=== PATIENT | female | born 2000 | race Caucasian/White ===

== ENCOUNTER → 2023-07-27 08:49 | Outpatient (CLI) | payer BC, SELFPAY ==
--- NOTE | ~2023-07-27 | US_ITS ---
Pelvic ultrasound. Clinical History: Pressure a , establish dates and viability. Technique: Realtime transabdominal and transvaginal scanning of the pelvis was performed. Color flow Doppler and Doppler spectral analysis were performed. Findings: The uterus is anteverted, and contains an intrauterine gestational sac. [place]-rump length o f 1.6 cm corresponds to an estimated gestational age of 8 weeks 0 days. heart rate is 169 bpm. Probable small subchorionic hemorrhage present. The right ovary measures 2.5 x 1.9 x 2.1 cm. No significant right ovarian or adnexal mass is seen. The left ovary measures 2.4 x 3.3 x 2.4 cm. No significant left ovarian or adnexal mass is seen. There is no evidence of free fluid in the cul de sac. Impression: Live intrauterine gestation, with estimated gestational age of 8 weeks 0 days. heart rate is 16 9 bpm. Gestational sac is somewhat distally located, but there appears to be intact myometrium about the gestational sac. Probable small subchorionic hemorrhage. Reviewed, dictated and finalized at [facility]. S PROJECT MANAGER Impression: Live intrauterine gestation, with estimated gestational age of 8 weeks 0 days. heart rate is 169 bpm. Gestational sac is somewhat distally located, but there appears to be intact myometrium about the gestational sac. Probable small subchorionic hemorrhage.
== END ==
PROVIDERS: PCP Family Medicine; Visit Provider Advanced Practice Midwife
DX: O36.80X0 Pregnancy with inconclusive fetal viability, not applicable or unspecified (principal); Z3A.00 Weeks of gestation of pregnancy not specified
CPT/HCPCS: 76801; 76817

== ENCOUNTER → 2023-08-10 07:49 | Outpatient (CLI) | payer BC, SELFPAY ==
--- NOTE | ~2023-08-10 | US_ITS ---
EXAMINATION: US OB <=14 wk fetus w TV DATE: 08/10/2023 08:20 INDICATION: Subchorionic hematoma during first trimester TECHNIQUE: Real-time pelvic ultrasound utilizing both a transvaginal and transabdominal probe was pe rformed. The interpreting radiologist was not present for the study. COMPARISON: 07/27/2023 FINDINGS: The uterus measures 10.9 x 7.3 x 6.9 cm. There is an intrauterine gestational sac. A yolk sac and fe juan pablo pole are identified. The crown rump length measures 3.0, which correlates with an estimated gesta tional age of 10 weeks and 0 days. heart motion is identified measuring 165 beats per minute (b pm) by M-mode Doppler. No significant change in size of a 2.3 x 1.6 x 1.5 cm subchorionic hematoma. The right ovary is not visualized The left ovary measures 2.2 x 2.1 x 2.1 cm. 1.4 similar anechoic li lima corpus luteum cyst in the left ovary. There is no free fluid in the pelvis. IMPRESSION: 1. Single living fetus with heart rate of 165 bpm. 2. Persistent small subchorionic hematoma. 3. Gestational age by ultrasound of 10 weeks 0 day(s) +/- 6 day(s) with ultrasound estimated date of delivery (ARTIS) of 03/07/2024. Reviewed, dictated and finalized at location A. TUBE MAKER IMPRESSION: 1. Single living fetus with heart rate of 165 bpm. 2. Persistent small subchorionic hematoma. 3. Gestational age by ultrasound of 10 weeks 0 day(s) +/- 6 day(s) with ultraso und estimated date of delivery (ARTIS) of 03/07/2024.
== END ==
PROVIDERS: PCP Obstetrics & Gynecology Gynecology; Visit Provider Obstetrics & Gynecology Gynecology
DX: O36.8910 Maternal care for other specified fetal problems, first trimester, not applicable or unspecified (principal); Z3A.10 10 weeks gestation of pregnancy
CPT/HCPCS: 76801; 76817

== ENCOUNTER → 2023-09-04 08:47 | Outpatient (CLI) | payer BC, SELFPAY ==
--- NOTE | ~2023-09-04 | US_ITS ---
EXAMINATION: US OB <= 14 weeks fetus DATE: 09/04/2023 09:44 INDICATION: Subchorionic hematoma follow-up during first trimester TECHNIQUE: Real-time pelvic transabdominal and transvaginal ultrasound was performed. COMPARISON: None. FINDINGS: The uterus measures 15.1 x 8.3 x 7.8 cm. There is an intrauterine gestational sac. The plac enta is anterior. No persistent subchorionic hematoma is identified. heart motion is identified measuring 161 beats per minute (bpm) by M-mode Doppler. The crown rump length measures 7.7 cm, which correlates with an estimated gestational age of 13 weeks and 6 day(s) (+/-) 9 day(s). The ovaries are not visualized however no adnexal abnormality is seen. There is no free fluid in the pelvis. IMPRESSION: 1. Live intrauterine with an estimated gestational age of 13 weeks and 6 day(s) (+/-) 9 day (s) and an estimated delivery date of 03/05/2024. 2. No persistent subchorionic hematoma identified. Reviewed, dictated and finalized at location F. ELAIN SLUSHER IMPRESSION: 1. Live intrauterine with an estimated gestational age of 13 weeks an d 6 day(s) (+/-) 9 day(s) and an estimated delivery date of 03/05/2024. 2. No persistent subchorionic hematoma identified.
== END ==
PROVIDERS: PCP Family Medicine; Visit Provider Advanced Practice Midwife
DX: O36.8910 Maternal care for other specified fetal problems, first trimester, not applicable or unspecified (principal); Z3A.13 13 weeks gestation of pregnancy
CPT/HCPCS: 76801

== ENCOUNTER 2023-10-16 11:22 | Outpatient (CLI) | payer BC, SELFPAY ==
--- NOTE | ~2023-10-16 | US_ITS ---
US OB /maternal detail DATE: 10/16/2023 12:19 INDICATION: anatomy screen TECHNIQUE: Real-time imaging and Doppler analysis COMPARISON: 09/04/2023 obstetrical ultrasound examination FINDINGS: Live chau intrauterine gestation, fetus in longitudinal lie, vertex presentation. Anterior placenta, lower margin well above the internal os. heart rate of 143 bpm. The cerebral ventricles, cisterna magna, cerebellum and cervical spine appear normal. Normal nu chal fold. diaphragm appears intact. Four-chamber heart view is not optimally demonstrated nor any outflow tracts, due to body habit us. Consider follow-up imaging for this. heart rate 143 bpm. Fluid is demonstrated in the stomach and urinary bladder. The kidneys are unremarkable, without hydronephrosis. Four extremities are detected. Biparietal diameter 4.34 cm; 19 weeks 1 day Head circumference 17.13 cm; 19 weeks 5 days Abdominal circumference 14.97 cm; 20 weeks 2 days Femur length 3.16 cm; 19 weeks 6 days Composite age by [place] formula is 19 weeks 5 days +/- 1 week 3 days with ARTIS of 03/06/2024, very monserrat se to the 03/05/2024 ARTIS obtained by the 09/04/2023 obstetrical ultrasound examination and the ARTIS of 03/07/2024 from the 07/27/2023 obstetrical ultrasound examination. IMPRESSION: Normal growth Four-chamber heart and outflow tracts are not optimally demonstrated due to body habitus; consi khushi follow-up imaging Otherwise normal anatomy screen Reviewed, dictated and finalized at Location [facility]. Reviewed, dictated and finalized at location A. IMPRESSION: Normal growth Four-chamber heart and outflow tracts are not optimally demonstrated due to body habitus; consider follow-up imaging Otherwise normal anatomy screen
== END 2023-10-16 11:23 ==
LOC: GOSHIMG 11:23
PROVIDERS: PCP Family Medicine; Visit Provider Advanced Practice Midwife
DX: Z36.9 Encounter for antenatal screening, unspecified (principal)
CPT/HCPCS: 76805

== ENCOUNTER 2023-10-23 08:40 | Outpatient (CLI) | payer BC, SELFPAY ==
--- NOTE | ~2023-10-23 | US_ITS ---
US renal BI 10/23/2023 09:00 Procedure: Realtime transabdominal ultrasound of the kidneys and bladder. Indication: Proteinuria Comparison: No prior studies for comparison. Findings: Renal echotexture is normal bilaterally without hydronephrosis, contour deforming mass or r enal calculus. The right kidney measures 11.7 cm and left kidney measures 10.9 cm. Bladder within no rmal limits. Impression: 1: Unremarkable renal ultrasound. No stones, masses or hydronephrosis. Reviewed, dictated and finalized at location B. Impression: 1: Unremarkable renal ultrasound. No stones, masses or hydronephrosis.
== END 2023-10-23 08:41 ==
PROVIDERS: PCP Family Medicine
DX: R80.0 Isolated proteinuria (principal)
CPT/HCPCS: 76775

== ENCOUNTER 2024-02-03 14:14 | Outpatient (RCR) | payer BC, SELFPAY ==
[2024-02-02] MEDS: BETAMETHASONE SOD PHOS/ACETATE 30 MG/5 ML VIAL 12 MG IM (14:09)
[2024-02-03] MEDS: BETAMETHASONE SOD PHOS/ACETATE 30 MG/5 ML VIAL 12 MG IM (14:41)
== END 2024-05-02 23:59 | disposition home or self-care (01) ==
LOC: ANHOBOP 14:14
PROVIDERS: PCP Family Medicine; Visit Provider Obstetrics & Gynecology Gynecology
DX: O36.8990 Maternal care for other specified fetal problems, unspecified trimester, not applicable or unspecified (principal); Z3A.00 Weeks of gestation of pregnancy not specified
CPT/HCPCS: 96372; J0702

== ENCOUNTER 2024-02-03 16:39 | Inpatient (IN) | payer BC, SELFPAY ==
[2024-02-03] VITALS (10 sets, daily range): BP systolic 96–144; BP diastolic 47–82; PULSE 78–102; BMI 51.7
[2024-02-03] MEDS: miSOPROStol 25 MCG TABLET BUCCAL (18:50)
[2024-02-03 18:51] LABS: Basophils Percent Auto 0.1 % (0.2-1.2); Hematocrit 37.8 % (37.0-47.0); Hemoglobin 13.1 g/dL (12.0-15.0); Immature Granulocyte Absolute 0.09 K/mm3 (0.00-0.031); Immature Granulocyte Percent A 0.7 % (0-0.5); Lymphocytes Absolute Auto 1.31 K/mm3 (0.9-3.2); Lymphocytes Percent Auto 9.5 % (18.3-44.2); Mean Corpuscular HGB Conc 34.7 g/dl (32-36); Mean Corpuscular Hemoglobin 30.5 pg (26-34); Mean Corpuscular Volume 88.1 fl (80-100); Mean Platelet Volume 9.3 fl (7.4-10.4); Monocytes Absolute Auto 0.5 K/mm3 (0.1-0.6); Monocytes Percent Auto 3.3 % (2.6-8.5); Neutrophils Absolute Auto 11.9 K/mm3 (1.3-6.7); Neutrophils Percent Auto 86.4 % (45.5-73.1); Platelet Count Result 306 k/mm3 (150-375); Red Blood Count 4.29 M/mm3 (4.2-5.4); Red Cell Distribution Width 13.1 % (11.5-14.5); White Blood Count 13.8 K/mm3 (4.5-10.0)
--- NOTE | 2024-02-03 18:53 | LDADM ---
This patient, Inderjit Pinto, was admitted to Labor/Delivery/Recovery 103 on 02/03/24 at 16:39. Plans for labor, pain management and were discussed with patient. Patient/family oriented to hospital policies and general routines including ID bracelet, bed and alarms, visiting hours, pain management, procedures, bathroom and other care routines, personal items, smoking policy, room service/diet and guest tray routines, security routines, and visiting hours. Patient/Family are encouraged to report perceived risks to care and to ask questions if they do not understand what they are told or what they should do. See OBIX for further documentation.
[2024-02-03 19:09] LABS: Alanine Aminotransferase 50 U/L (6-35); Albumin Level 3.3 g/dL (3.5-5.1); Alkaline Phosphatase 119 U/L (38-126); Anion Gap 8 mmol/L (4-12); Aspartate Amino Transferase 32 U/L (14-36); Bilirubin,Total 0.3 mg/dL (0.2-1.3); Blood Urea Nitrogen 17 mg/dL (7-17); Carbon Dioxide 21 mmol/L (22-30); Chloride 104 mmol/L (98-107); Estimated CRCL calculation 162 ml/min; Estimated Glomerular Filt Rate > 60; Glucose 151 mg/dL (65-110); Potassium 3.9 mmol/L (3.4-5.0); Sodium 133 mmol/L (137-145)
[2024-02-03 19:11] LABS: Uric Acid 6.1 mg/dL (2.5-7.5)
[2024-02-03 19:19] LABS: Glucose Point of Care 124 mg/dl (65-105)
[2024-02-03 19:27] LABS: Rapid Plasma Reagin Non-Reactive (NonReactive)
[2024-02-03 19:50] LABS: HIV 1/2 Ab P24 Ag Result Negative (Negative)
[2024-02-03] MEDS: INSULIN HUMAN NPH (*BKC) 100 UNITS/ML 51 UNITS SUB-Q (21:28)
[2024-02-03] MEDS: miSOPROStol 25 MCG TABLET 50 MCG VAGINAL (22:58)
[2024-02-03 23:42] LABS: Glucose Point of Care 171 mg/dl (65-105)
[2024-02-04] VITALS (242 sets, daily range): BP systolic 66–142; BP diastolic 37–87; PULSE 27–140; RESP 18–20; TEMP 36.4–37.3; O2SAT 84–100
[2024-02-04] MEDS: miSOPROStol 25 MCG TABLET 50 MCG VAGINAL (02:50)
[2024-02-04 07:06] LABS: Glucose Point of Care 96 mg/dl (65-105)
[2024-02-04] MEDS: LACTATED RINGERS 1,000 ML 125 ML IV CONT ×2 (07:08→14:22)
[2024-02-04] MEDS: OXYTOCIN 30 UNITS/NS 500 ML 30 UNITS/500 ML BAG 6 UNITS IV CONT (07:14)
--- NOTE | 2024-02-04 07:29 | WPDOBADMIT ---
Obstetrics - Admit Note Admission Note: record reviewed. Pertinent additions to the history and/or any subsequent changes in the physical findings that are not consistent with the expected course of the were found. Additions to the history and/or subsequent changes in the physical findings follow. Patient with nephrotic syndrome diagnosed at start of pregnacy, GDMA2, and likely now preeclampsia. S/p steroids on 02/01 and 02/02. Here for MIL. Received cytotec overnight and now on pitocin. Cervix now /-2. AROM with clear fluid. IUPC placed. VSS and labs stable.
--- NOTE | 2024-02-04 08:49 | WPDANESEPP ---
Anes - Eval Pre Procedure Procedure: Labor Epidural Date/Time: 02/04/24 08:49 Surgeon: Lino Preop Diagnosis: Labor pain Pre Op Diagnosis: IOL Patient Data Age: 23 Gender: F Height: 1.7 m Weight: 150 kg Last Vital Signs Temp 36.9 C 02/04/24 07:01 Pulse 83 02/04/24 08:31 Resp 18 02/04/24 07:01 BP 139/82 02/04/24 08:31 O2 Del Method Room Air 02/03/24 18:53 Allergies Allergy/AdvReac Type Severity Reaction Status Date / Time nitrofurantoin Allergy Swelling Verified 02/03/24 18:59 [From Macrobid] of Lip/Tongue/Throat Home Medications Medication Instructions Recorded Confirmed Type aspirin 81 mg tablet 81 mg PO DAILY 02/03/24 02/03/24 History ergocalciferol (vitamin D2) 1,250 50,000 unit PO WEEKLY 02/03/24 02/03/24 History mcg (50,000 unit) capsule (Vitamin D2) insulin NPH isoph U-100 human 100 51 unit subcut HS 02/03/24 02/03/24 History unit/mL (3 mL) subcutaneous pen (Humulin N NPH U-100 Insulin KwikPen) vits no.126-ferrous fum 1 tablet PO DAILY 02/03/24 02/03/24 History 28 mg iron-folic acid 800 mcg tablet (Classic ) Laboratory Tests 02/03/24 02/03/24 02/03/24 18:29 19:16 23:37 WBC 13.8 H K/mm3 (4.5-10.0) RBC 4.29 M/mm3 (4.2-5.4) Hgb 13.1 g/dL (12.0-15.0) Hct 37.8 % (37.0-47.0) MCV 88.1 fl (80-100) MCH 30.5 pg (26-34) MCHC 34.7 g/dl (32-36) RDW 13.1 % (11.5-14.5) Plt Count 306 k/mm3 (150-375) MPV 9.3 fl (7.4-10.4) Immature Gran % (Auto) 0.7 H % (0-0.5) Neut % (Auto) 86.4 H % (45.5-73.1) Lymph % (Auto) 9.5 L % (18.3-44.2) [place] % (Auto) 3.3 % (2.6-8.5) Eos % (Auto) 0.0 % (0-4.4) Baso % (Auto) 0.1 L % (0.2-1.2) Lymph # (Auto) 1.31 K/mm3 (0.9-3.2) [place] # (Auto) 0.5 K/mm3 (0.1-0.6) Eos # (Auto) 0.0 K/mm3 (0-0.3) Baso # (Auto) 0.0 K/mm3 (0.0-0.1) Abs Immat Gran (auto) 0.09 H K/mm3 (0.00-0.031) Absolute Neuts (auto) 11.9 H K/mm3 (1.3-6.7) Absolute Nucleated RBC 0.000 K/mm3 (0.0-0.012) Nucleated RBC % 0.0 % (0.0-0.2) Sodium 133 L mmol/L (137-145) Potassium 3.9 mmol/L (3.4-5.0) Chloride 104 mmol/L (98-107) Carbon Dioxide 21 L mmol/L (22-30) Anion Gap 8 mmol/L (4-12) BUN 17 mg/dL (7-17) Creatinine 0.70 mg/dL (0.7-1.0) Estim Creat Clear Calc 162 ml/min Estimated GFR > 60 (59 - ) Glucose 151 H mg/dL (65-110) POC Capillary Glucose 124 H mg/dl 171 H mg/dl (65-105) (65-105) Uric Acid 6.1 mg/dL (2.5-7.5) Calcium 9.0 mg/dL (8.4-10.2) Total Bilirubin 0.3 mg/dL (0.2-1.3) AST 32 U/L (14-36) ALT 50 H U/L (6-35) Alkaline Phosphatase 119 U/L (38-126) Total Protein 6.0 L g/dL (6.3-8.2) Albumin 3.3 L g/dL (3.5-5.1) RPR Non-reactive (NonReactive) HIV 1&2 Ab/P24 Ag 4thGn Negative (Negative) Blood Type A Positive Antibody Screen Negative 02/04/24 06:58 WBC RBC Hgb Hct MCV MCH MCHC RDW Plt Count MPV Immature Gran % (Auto) Neut % (Auto) Lymph % (Auto) [place] % (Auto) Eos % (Auto) Baso % (Auto) Lymph # (Auto) [place] # (Auto) Eos # (Auto) Baso # (Auto) Abs Immat Gran (auto) Absolute Neuts (auto) Absolute Nucleated RBC Nucleated RBC % Sodium Potassium Chloride Carbon Dioxide Anion Gap BUN Creatinine Estim Creat Clear Calc Estimated GFR Glucose POC Capillary Glucose 96 mg/dl
[2024-02-04] MEDS: LACTATED RINGERS 1,000 ML 999 ML IV CONT (09:14)
[2024-02-04 09:41] LABS: Glucose Point of Care 112 mg/dl (65-105)
[2024-02-04 11:57] LABS: Glucose Point of Care 84 mg/dl (65-105)
[2024-02-04 14:49] LABS: Glucose Point of Care 85 mg/dl (65-105)
[2024-02-04 16:16] LABS: Glucose Point of Care 101 mg/dl (65-105)
[2024-02-04 18:25] LABS: Glucose Point of Care 80 mg/dl (65-105)
--- NOTE | 2024-02-04 20:28 | PM.OBPRVD ---
OB - Vaginal Delivery Note Procedure Delivery date: 02/04/24 Events: Gestational Diabetes (GDMA2), Preeclampsia w/o severe features and Other (Nephrotic syndrome) Induction method: AROM, Per Misoprostol Protocol and Per Pitocin Protocol Delivery monitor: Internal FHT and Internal Uterine Route of delivery: Laceration Description: Perineal - 2nd Degree Delivery repair: vicryl (3-0) Specimen: Yes (placenta) Quantitative Blood Loss (ml): 150 Anesthesia type: Epidural Disposition: Floor Complications: No immediate complications [place] Baby Date of : 02/04/24 Gestational Age by Date: 35 (35 5/) Infant gender: Male Weight (pounds): 6 Weight (ounces): 10 presentation: vertex position: Right Occiput Anterior Placenta delivery description: Spontaneous Cord Vessel Description: 3 Vessels, Nuchal Cord and Delayed Cord Clamping score one minute: 8 score five minutes: 9
--- NOTE | 2024-02-04 20:30 | PM.OBDSVD ---
DS: Admitting Diagnosis Discharge Date 02/06/24 Admitting Diagnosis IUP 35 4/7 wks Nephrotic syndrome Preeclampsia GDMA2 DS: Discharge Diagnosis Discharge Diagnosis (1) (normal spontaneous vaginal delivery): Code(s): O80 - Encounter for full-term uncomplicated delivery Status: Acute (2) Preeclampsia: Code(s): O14.90 - Unspecified pre-eclampsia, unspecified trimester Status: Acute (3) Nephrotic syndrome: Code(s): N04.9 - Nephrotic syndrome with unspecified morphologic changes Status: Acute (4) GDM, class A2: Code(s): O24.419 - Gestational diabetes mellitus in , unspecified control Status: Acute (5) with 35 to 36 completed weeks gestation: Status: Acute Assessment and Plan: Delivered OB - DS: Summary OB Procedures : NST, PIH Mgmt, Ultrasound and Other (Diabetes management) OB Procedures Intrapartum: Spontaneous Vag Delivery OB Procedures: : None Peripartum Data Infant Delivery Method: Natural Vaginal Laceration Description: Perineal - 2nd Degree Episiotomy description: None complications: none Status at Discharge Functional status at discharge: independent ambulation Overall status at discharge: patient is progressing back to baseline Time Spent with Patient Time attestation: Total time spent providing and/or coordinating discharge services: DS: Data Data Completed and Pending Labs on day of discharge: Labs from last 24 hours 02/04/24 02/04/24 02/04/24 18:19 16:02 14:05 POC Capillary Glucose 80 101 85 02/04/24 02/04/24 02/04/24 11:54 09:36 06:58 POC Capillary Glucose 84 112 H 96 02/03/24 23:37 POC Capillary Glucose 171 H Discharge Plan Discharge Attending physician on discharge: Arline Huynh Discharging Clinician: Arline Huynh Anticipated Discharge Date/Time: 02/06/24 20:32 Patient Disposition: Home, Self-Care Activity: may shower and pelvic rest Diet: regular Discharge Instructions: Education: Mom and Baby Guide Given to: Mother Follow-Up: Call your delivering provider's office for an appointment to be seen in: 1 week and 6 weeks Mom and baby should come to the [facility] for the follow-up appointment. Appointment Date/Time: February 08, 2024 at 9:00 am What to expect at your follow-up visit: Physical Assessment Call [phone] if you are unable to keep your appointment time. BREAST CARE: * Wear a snug supportive bra. * For engorgement discomfort: Breast Feeding: * Apply warm moist washcloths * Express milk as needed to relieve engorgement * Wear loose clothing Bottle Feeding: * May apply ice packs * For sore nipples: * Identify correct latch-on * Apply warm moist washcloths before and after nursing * Air dry nipples after nursing * May apply [place] cream to nipples EPISIOTOMY/PERINEAL CARE: * Until bleeding stops, use your mary bottle after urinating * Change your pad frequently throughout the day * You may take sitz baths several times a day (fill your bathtub with warm water and soak for 20 minutes.) Do NOT bathe in the water * No tub baths until seen by your physician - You may shower ACTIVITY: * Rest as much as possible. * Do not exercise or lift anything heavier than your baby (such as laundry or other children.) * Avoid stairs or driving as much as possible. * Do not put anything into the vagina. No douching, tampons, or sexual activity until seen by physician. NOTIFY PHYSICIAN IF YOU HAVE ANY QUESTIONS OR IF ANY OF THE FOLLOWING SYMPTOMS OCCUR: * If your episiotomy or incision becomes red, swollen, or more painful than what you have experienced in the hospital. * If your vaginal bleeding becomes foul smelling. * If your vaginal bleeding becomes more heavy than a period or if your bleeding arredondo
[2024-02-04] MEDS: OXYTOCIN 30 UNITS/NS 500 ML 30 UNITS/500 ML BAG 125 UNITS IV CONT (20:47)
[2024-02-04] MEDS: ACETAMINOPHEN 500 MG TABLET (20:49)
[2024-02-04] MEDS: ACETAMINOPHEN 500 MG TABLET 1000 MG PO (21:58)
[2024-02-04] MEDS: ENOXAPARIN 40 MG/0.4 ML SYRINGE SUB-Q (22:31)
[2024-02-05] VITALS (7 sets, daily range): BP systolic 123–142; BP diastolic 72–97; PULSE 79–104; RESP 16–18; TEMP 36.4–38.1; O2SAT 96–98; BMI 50.9
--- NOTE | 2024-02-05 00:07 | PC.NURSE ---
0000- this RN called MD to update her on pts perineal repair pain unrelieved by tylenol. Orders received.
[2024-02-05] MEDS: HYDROcodone/acetaminophen (*CRX) 10-325 MG TABLET 1 TAB PO (00:19)
--- NOTE | 2024-02-05 00:30 | OBPPTRN ---
Patient transferred to post room #284 via wheelchair. Support person/spouse present. Oriented to unit, room, information board, rooming in, admission packet and security measures. Patient verbalizes understanding.
--- NOTE | 2024-02-05 01:30 | PC.NURSE ---
Initiated pumping with patient due to separation from . Educated on cleaning pump parts and milk storage.
--- NOTE | 2024-02-05 03:30 | PC.NURSE ---
transported PT via wheelchair to RM 101 to visit with in level 2 nursery.
[2024-02-05 06:57] LABS: Hemoglobin 12.6 g/dL (12.0-15.0)
[2024-02-05] MEDS: DOCUSATE SODIUM 100 MG CAPSULE PO (07:56)
[2024-02-05] MEDS: MULTIVIT/MIN/PREN/FOL AC/IRON TABLET 1 TAB PO (07:57)
[2024-02-05] MEDS: ACETAMINOPHEN 500 MG TABLET 1000 MG PO ×3 (07:57→19:50)
--- NOTE | 2024-02-05 08:01 | PM.OBPNVD ---
OB - PN: Subj Subjective Date/time seen: 02/05/24 08:01 Patient comments: no complaints and pain well controlled baby status: doing well OB - PN: Obj Data Labs 02/05/24 04:48 02/03/24 18:29 Labs: Laboratory Results - last 24 hr 02/04/24 02/04/24 02/04/24 09:36 11:54 14:05 Hgb Hct POC Capillary Glucose 112 H 84 85 02/04/24 02/04/24 02/05/24 16:02 18:19 04:48 Hgb 12.6 Hct 37.0 POC Capillary Glucose 101 80 OB - PN A/P Assessment and Plan (1) Preeclampsia: Code(s): O14.90 - Unspecified pre-eclampsia, unspecified trimester Status: Acute Assessment and Plan: BP stable, good diuresis (2) Nephrotic syndrome: Code(s): N04.9 - Nephrotic syndrome with unspecified morphologic changes Status: Acute Plan day: 1 Plan: routine care Time Spent With Patient Time: Total time spent is greater than 50% in coordination of care (as documented) at patient's floor/unit and/or counseling patient: Exam : Bimanual exam- vagina & uterus: other (Uterus firm, nt @U)
--- NOTE | 2024-02-05 10:26 | PC.NURSE ---
Patient encouraged to record the pumping schedule on the feeding sheet.?Mother voiced understanding of the education shared along with mom/baby guide and the pump measurement, flange fit handout for additional resource information.
--- NOTE | 2024-02-05 11:23 | WPDANLDPN2 ---
Anes-Prog Note L&D Date/Time: 02/05/24 11:23 Neuro status: Neuro function grossly intact. Cardiovascular status: normal Respiratory status: normal Airway patency: baseline Mental status: baseline Post-Op hydration status: normal Vital Signs: Last Vital Signs Temp 38.1 C H 02/05/24 07:30 Pulse 104 H 02/05/24 08:00 Resp 16 02/05/24 08:00 BP 123/72 02/05/24 07:30 Pulse Ox 98 02/05/24 08:00 O2 Del Method Room Air 02/05/24 08:00 Pain score (VAS): 0 I/O: Intake & Output 02/04/24 02/05/24 02/05/24 23:59 07:59 15:59 Intake Total 500 275 275 Output Total 2716 0539 700 Balance -917 -8955 -145 Post-procedural complaints: none Patient feedback: Patient satisfied with anesthetic care.
[2024-02-05] MEDS: ENOXAPARIN 40 MG/0.4 ML SYRINGE SUB-Q (21:37)
[2024-02-06] MEDS: ACETAMINOPHEN 500 MG TABLET 1000 MG PO ×2 (01:21→09:23)
[2024-02-06 04:57] VITALS: BP 111/72; PULSE 83
--- NOTE | 2024-02-06 06:42 | PM.OBPNVD ---
OB - PN: Subj Subjective Date/time seen: 02/06/24 06:42 Patient comments: no complaints and pain well controlled baby status: doing well OB - PN: Obj Data Labs 02/05/24 04:48 02/03/24 18:29 Labs: Laboratory Results - last 24 hr 02/05/24 04:48 Hgb 12.6 Hct 37.0 OB - PN A/P Plan day: 2 Plan: routine care, discharge home and follow up 6 weeks (2) Comments: ncb Time Spent With Patient Time: Total time spent is greater than 50% in coordination of care (as documented) at patient's floor/unit and/or counseling patient: Time with patient: less than 15 minutes Exam Const: General: cooperative, healthy appearing and comfortable Nutritional Appearance: overweight Orientation/consciousness: oriented to person, oriented to place and oriented to time Resp: Effort & Inspection: normal respiratory effort Cardio: Rate: regular rate Rhythm: regular rhythm Heart sounds: S1 normal heart sound present and S2 normal heart sound present GI: Inspection: normal to inspection
[2024-02-06 07:45] VITALS: BP 134/78; PULSE 88; RESP 16; TEMP 36.3
[2024-02-06] MEDS: MULTIVIT/MIN/PREN/FOL AC/IRON TABLET 1 TAB PO (09:23)
[2024-02-06] MEDS: DOCUSATE SODIUM 100 MG CAPSULE PO (09:23)
[2024-02-06 11:00] VITALS: BP 147/91; PULSE 80; RESP 16; TEMP 36.2
--- NOTE | 2024-02-08 08:15 | PC.NURSE ---
Patient called to room to observe latch. Mother suggests that keeps falling off the breast. Educated mother on a deep latch and how to accomplish a good, deep latch. Mother understands and demonstrates a deep latch. is nursing well and mother denies any pain.
[2024-02-08 09:05] VITALS: BP 142/90; PULSE 88; RESP 18; TEMP 36.7; O2SAT 98
== END 2024-02-06 17:45 | disposition home or self-care (01) | DRG 806 ==
LOC: ANHLDR 02-04 20:33 → ANHOB2 02-06 08:50 → ANHLDR 02-08 13:33 → ANHOB2 02-08 13:33
PROVIDERS: Admitting Provider Obstetrics & Gynecology Gynecology; PCP Family Medicine; Visit Provider Obstetrics & Gynecology
DX: O24.429 Gestational diabetes mellitus in childbirth, unspecified control (principal); N04.9 Nephrotic syndrome with unspecified morphologic changes; Z37.0 Single live birth; O14.04 Mild to moderate pre-eclampsia, complicating childbirth; O70.1 Second degree perineal laceration during delivery; O69.81X0 Labor and delivery complicated by cord around neck, without compression, not applicable or unspecified; Z3A.35 35 weeks gestation of pregnancy
CPT/HCPCS: 36415; 80053; 82948; 84550; 85014; 85018; 85025; 86592; 86703; 86850; 86900; 86901; 88307; A9270; G0432; J1650; J1815; J2590; J2795; J7120

== ENCOUNTER 2024-06-24 13:46 | Emergency (ER) | payer BC, SELFPAY ==
[2024-06-24] VITALS (7 sets, daily range): BP systolic 142–156; BP diastolic 76–103; PULSE 74–94; RESP 16; TEMP 36.4–36.6; O2SAT 96–100
--- NOTE | ~2024-06-24 | XR_ITS ---
Clinical Indication: Syncope, seizure AP and lateral views of the chest: Comparison: None Findings: The lungs are clear, without evidence of focal consolidation or pleural effusion. Cardiome diastinal silhouette is within normal limits. Bones and soft tissues are unremarkable. Impression: Normal chest. Reviewed, dictated and finalized at [facility]. [employer] Impression: Normal chest.
--- NOTE | ~2024-06-24 | CT_ITS ---
Non-contrast Head CT History: Syncope Technique: Axial non-contrast imaging of the brain was performed. Dose reduction technique was used on this scan by utilizing automated exposure control and iterative reconstruction technique. The dose -length product (DLP) was 605.33 mGy-cm. Findings: There is no evidence of intracranial hemorrhage, mass lesion, or acute infarct. Brain par enchyma appears normal. The ventricles and subarachnoid spaces are normal in size. The calvarium ap pears normal. The visualized paranasal sinuses and mastoid air cells are clear. Impression: No significant abnormality seen. Reviewed, dictated and finalized at location . MASTER Impression: No significant abnormality seen.
--- NOTE | 2024-06-24 13:48 | ECG_ITS ---
Test Date: 2024-06-24 13:50:48 Measurements Intervals [place] Rate: 66 P: 29 MO: 159 QRS: 29 QRSD: 103 T: 26 QT: 391 QTc: 410 Interpretive Statements SINUS RHYTHM WITH SINUS ARRHYTHMIA No previous ECG available for comparison Electronically Signed On 06-24-2024 15:47:33 BIOINFORMATICS ASSISTANT by Cam Johns M.D.
[2024-06-24] MEDS: SODIUM CHLORIDE 0.9% IV 1,000 ML 999 ML IV CONT ×2 (14:27→16:26)
[2024-06-24 14:49] LABS: Basophils Percent Auto 0.5 % (0.2-1.2); Eosinophils Absolute Auto 0.1 K/mm3 (0-0.3); Hematocrit 38.7 % (37.0-47.0); Hemoglobin 13.5 g/dL (12.0-15.0); Immature Granulocyte Absolute 0.02 K/mm3 (0.00-0.031); Immature Granulocyte Percent A 0.2 % (0-0.5); Lymphocytes Absolute Auto 2.83 K/mm3 (0.9-3.2); Lymphocytes Percent Auto 34.9 % (18.3-44.2); Mean Corpuscular HGB Conc 34.9 g/dl (32-36); Mean Corpuscular Hemoglobin 29.9 pg (26-34); Mean Corpuscular Volume 85.6 fl (80-100); Mean Platelet Volume 8.8 fl (7.4-10.4); Monocytes Absolute Auto 0.7 K/mm3 (0.1-0.6); Monocytes Percent Auto 8.1 % (2.6-8.5); Neutrophils Absolute Auto 4.5 K/mm3 (1.3-6.7); Neutrophils Percent Auto 55.3 % (45.5-73.1); Platelet Count Result 294 k/mm3 (150-375); Red Blood Count 4.52 M/mm3 (4.2-5.4); Red Cell Distribution Width 12.7 % (11.5-14.5); White Blood Count 8.1 K/mm3 (4.5-10.0)
[2024-06-24 15:02] LABS: Lactic Acid Reflex 1.3 mmol/L (0.7-2.0)
--- NOTE | 2024-06-24 15:03 | ED_ITS ---
HPI - General Adult General Chief complaint: Seizure Stated complaint: Seizures Time Seen by Provider: 06/24/24 13:48 Source: patient Mode of arrival: EMS Limitations: no limitations History of Present Illness HPI narrative: Patient is a 23-year-old female who presents to the ED via EMS with report of syncope and possible seizure activity. Patient reports she had a kidney biopsy this morning at [facility] due to proteinuria. She states this went well. Upon returning home, she ate lunch and began breast pumping for her child. she began feeling dizzy, lightheaded, diaphoretic, nauseous. She felt as though she was about to pass out. Her helped onto her in the chair where she then had a syncopal episode. Has been reports that patient was unconscious for approximately 30 seconds. He states she had some shaking activity and became concerned for a seizure. EMS was then called. has been states patient was somewhat dazed for approximately 10 seconds afterwards, but was otherwise back to her baseline immediately afterwards. There was no bowel or bladder incontinence. No biting of the tongue. Patient reports she has had a similar passing out episode in the past with similar prodrome. No previous history of seizures. She feels fatigued, nauseous, slightly lightheaded currently. Denies headache or other pain. Denies focal weakness or numbness. Denies vision changes. Related Data Home Medications ?Medication ?Instructions ?Recorded ?Confirmed ?Last Taken ?Type ergocalciferol (vitamin D2) 1,250 50,000 unit PO WEEKLY 02/03/24 02/03/24 01/27/24 21:00 History mcg (50,000 unit) capsule (Vitamin D2) vits no.126-ferrous fum 1 tablet PO DAILY 02/03/24 02/03/24 1 Day Ago History 28 mg iron-folic acid 800 mcg ~02/02/24 tablet (Classic ) Allergies Allergy/AdvReac Type Severity Reaction Status Date / Time nitrofurantoin (From Allergy Swelling Verified 02/03/24 18:59 Macrobid) of Lip/Tongue/Throat Review of Systems 2 Review of Systems: All systems reviewed & are unremarkable except as noted in HPI. All systems reviewed & are unremarkable except as noted in HPI and below PMFSH Family History Family History Other Congestive heart failure Diabetes mellitus Hypertension Social History Social History Smoking status: Never smoker Substance use: never Do You Feel Safe in your Home?: Yes Lack of Transportation: No Lack of Food: Never True Current Housing: I Have Housing Concerned About Future Housing: No Difficulty Paying Gas/Electric Bills: No Difficulty Paying for Meds: No Currently Unemployed: No Education: Bachelor's Degree Difficulty w/ Childcare or Family Care: No Spiritual care concerns: No Exam 2 Narrative: GENERAL: Well appearing, morbidly obese with BMI of 50.4, non-toxic, in no acute distress. HEAD: Normocephalic, atraumatic. EYES: PERRL/EOMI, conjunctivae clear bilaterally. No nystagmus. NECK: Supple. No meningeal signs. RESPIRATORY: Airway patent, respirations nonlabored. Clear to auscultation bilaterally, no rales, rhonchi, wheezing. CARDIOVASCULAR: Regular rate and rhythm without murmurs, rubs, or gallops. Peripheral pulses 2+ and equal bilaterally. MUSCULOSKELETAL: Moves all extremities. No gross deformities. SKIN: Warm, dry, normal color. No rashes. NEURO: A&O X3. Speech clear. Follows commands. CN II-XII intact. Sensation grossly intact. Steady gait. No ataxic movements. Strength 5/5 in upper and lower extremities bilaterally. No pronator drift. Equal fifth grade teacher strength bilaterally. PSYCHIATRIC: Appropriate mood and affect. Normal interaction. Course Vital Signs Vital signs: Vital Signs Temperature 97.6 F 06/24/24 13:44 Pulse Rate 82 06/24/24 13:44 Respiratory Rate 16 06/24/24 13:44 Blood Pressure 156/87 H 06/24/24 13:44 Pulse Oximetry 96 06/24/24 13:44 Oxygen Delivery Room Air 06/24/24 13:44 Temperature 97.7 F 06/24/24 16:00 Pulse Rate 74 06/24/24 16:00 Respiratory Rate 16 06/24/24 16:00 Blood Pressure 143/88 H 06/24/24 16:00 Pulse Oximetry 100 06/24/24 16:00 Oxygen Delivery Room Air 06/24/24 13:44 Medical Decision Making MDM Narrative Medical decision making narrative: Patient presented to ED with syncopal episode, possible seizure-like activity. Vital signs are stable upon arrival. Patient is neurologically intact. Does report history of previous vasovagal episode, denies previous history of seizures. Per , who witnessed event, states shaking only lasted for approximately 30 seconds. There was no postictal phase. There was no incontinence. There was no biting of her tongue. Patient was immediately back to her baseline and able to answer questions once regaining consciousness. Patient has recollection of what occurred immediately after she regained consciousness as well. I am less suspicious for seizure activity as patient did report distinct prodrome of feeling hot, sweaty, nauseous, lightheaded prior to the syncopal episode occurred. Symptoms seem most consistent with vasovagal syncope. Again patient is neurologically intact. She was slightly orthostatic by blood pressure dropping at least [address] brain was obtained and without acute findings. Chest x-ray is clear. Laboratory studies are otherwise unremarkable. Stable electrolytes, stable kidney function. EKG without concerning changes. test is negative. Discussed lab and imaging findings with patient. She is feeling much better after fluids. She states she is ready to go home. I feel comfortable with this. Feel patient is safe for D/C home with close outpatient follow-up with primary care doctor. Will also provide neurology information for follow-up. Given strict return precautions should symptoms worsen or recur. Patient is in agreement with plan. in agreement. Patient discharged in stable condition. Remains neurologically intact at time of D/C Medical Records Medical records reviewed: Yes I reviewed the external patient's medical records. Vital Signs Vital Signs: Vital Signs Temperature 97.6 F 06/24/24 13:44 Pulse Rate 82 06/24/24 13:44 Respiratory Rate 16 06/24/24 13:44 Blood Pressure 156/87 H 06/24/24 13:44 Pulse Oximetry 96 06/24/24 13:44 Oxygen Delivery Room Air 06/24/24 13:44 Temperature 97.7 F 06/24/24 16:00 Pulse Rate 74 06/24/24 16:00 Respiratory Rate 16 06/24/24 16:00 Blood Pressure 143/88 H 06/24/24 16:00 Pulse Oximetry 100 06/24/24 16:00 Oxygen Delivery Room Air 06/24/24 13:44 Lab Data Lab results reviewed: Yes I reviewed the patient's lab results. 06/24/24 14:43 06/24/24 14:43 Labs: Lab Results 06/24/24 06/24/24 Range/Units 14:43 16:38 WBC 8.1 (4.5-10.0) K/mm3 RBC 4.52 (4.2-5.4) M/mm3 Hgb 13.5 (12.0-15.0) g/dL Hct 38.7 (37.0-47.0) % MCV 85.6 (80-100) fl MCH 29.9 (26-34) pg MCHC 34.9 (32-36) g/dl RDW 12.7 (11.5-14.5) % Plt Count 294 (150-375) k/mm3 MPV 8.8 (7.4-10.4) fl Immature Gran % (Auto) 0.2 (0-0.5) % Neut % (Auto) 55.3 (45.5-73.1) % Lymph % (Auto) 34.9 (18.3-44.2) % Evangeline % (Auto) 8.1 (2.6-8.5) % Eos % (Auto) 1.0 (0-4.4) % Baso % (Auto) 0.5 (0.2-1.2) % Lymph # (Auto) 2.83 (0.9-3.2) K/mm3 Evangeline # (Auto) 0.7 H (0.1-0.6) K/mm3 Eos # (Auto) 0.1 (0-0.3) K/mm3 Baso # (Auto) 0.0 (0.0-0.1) K/mm3 Abs Immat Gran (auto) 0.02 (0.00-0.031) K/mm3 Absolute Neuts (auto) 4.5 (1.3-6.7) K/mm3 Absolute Nucleated RBC 0.000 (0.0-0.012) K/mm3 Nucleated RBC % 0.0 (0.0-0.2) % Sodium 137 (137-145) mmol/L Potassium 3.4 (3.4-5.0) mmol/L Chloride 106 (98-107) mmol/L Carbon Dioxide 27 (22-30) mmol/L Anion Gap 4 (4-12) mmol/L BUN 17 (7-17) mg/dL Creatinine 0.90 (0.7-1.0) mg/dL Estim Creat Clear Calc 126 ml/min Estimated GFR > 60 (59 - ) Glucose 105 (65-110) mg/dL Lactic Acid 1.3 (0.7-2.0) mmol/L Calcium 8.6 (8.4-10.2) mg/dL Magnesium 1.6 (1.6-2.3) mg/dL Total Bilirubin 0.5 (0.2-1.3) mg/dL AST 21 (14-36) U/L ALT 23 (6-35) U/L Alkaline Phosphatase 71 (38-126) U/L Total Protein 6.0 L (6.3-8.2) g/dL Albumin 3.7 (3.5-5.1) g/dL POC Urine HCG, Qual Negative (Negative) Imaging Data Attestation: I personally reviewed and interpreted this imaging study as follows: Radiologist's impression: ITS Impressions Chest X-Ray 06/24/24 14:34 Impression: Normal chest. Head CT 06/24/24 14:34 Impression: No significant abnormality seen. ECG Data EKG #1: Attestation: I personally reviewed and interpreted this ECG as follows: ECG completion date: 06/24/24 ECG completion time: 13:50 EKG Interpretation: normal rate (66), sinus rhythm and no ST changes Discharge Plan Discharge Clinical Impression: Vasovagal syncope Patient Disposition: Home, Self-Care Condition: Stable Instructions: Antibiotic Form, Syncope (ED), Lightheadedness (ED) Additional Instructions: Your workup here was reassuring. Stay well hydrated at home. Recommend small frequent meals throughout the day. Continue to follow-up with primary care doctor and Neurology for further evaluation. Return to the ED if you experience recurrent symptoms, recurrent passing out, significant dizziness or lightheadedness, unable to keep down food or drink, chest pain, difficulty breathing, or any other symptoms of concern. Patient Language: Libyan Prescriptions: No Action ergocalciferol (vitamin D2) [Vitamin D2] 1,250 mcg (50,000 unit) Capsule 50,000 unit PO WEEKLY Rx Instructions: weds Classic 28 mg iron- 800 mcg Tablet 1 tablet PO DAILY enoxaparin [Lovenox] 40 mg/0.4 mL syringe 40 mg subcut DAILY Qty: 4 2RF Follow-up/Referrals: Belinda Michele MD [Physician] - (NEUROLOGY) UNKNOWN,DOCTOR [Primary Care Provider] - Time of Disposition: 17:09
[2024-06-24 15:04] LABS: Alanine Aminotransferase 23 U/L (6-35); Albumin Level 3.7 g/dL (3.5-5.1); Alkaline Phosphatase 71 U/L (38-126); Anion Gap 4 mmol/L (4-12); Aspartate Amino Transferase 21 U/L (14-36); Bilirubin,Total 0.5 mg/dL (0.2-1.3); Blood Urea Nitrogen 17 mg/dL (7-17); Calcium 8.6 mg/dL (8.4-10.2); Carbon Dioxide 27 mmol/L (22-30); Chloride 106 mmol/L (98-107); Estimated CRCL calculation 126 ml/min; Estimated Glomerular Filt Rate > 60; Glucose 105 mg/dL (65-110); Potassium 3.4 mmol/L (3.4-5.0); Sodium 137 mmol/L (137-145)
[2024-06-24 16:40] LABS: BEDSIDEPREGUCG Negative (Negative)
[2024-06-24 17:19] LABS: Magnesium 1.6 mg/dL (1.6-2.3)
== END 2024-06-24 17:29 | disposition home or self-care (01) ==
PROVIDERS: Emergency Medicine; Emergency Provider Physician Assistant
DX: R55 Syncope and collapse (principal)
CPT/HCPCS: 36415; 70450; 71046; 80053; 81025; 83605; 83735; 85025; 93005; 96360; 96361; 99283; 99284; J7030